=== PATIENT | female | born 1990 ===

== ENCOUNTER 2018-11-25 22:26 | Emergency (ER) | payer BC ==
[2018-11-25] MEDS ORDERED: PROTONIX 40 MG IV IV ONE (23:00)
[2018-11-25] MEDS ORDERED: Sodium Chloride 0.9% 1000 ML 1,000 ML IV STA ×2 (23:00→23:09)
[2018-11-25] MEDS ORDERED: Zofran 4 MG/2 ML VIAL IV ONE (23:08)
--- NOTE | 2018-11-25 23:16 | ERPHSYRPT ---
- History of Present Illness Time Seen by Provider: 11/25/18 22:48 Historian: patient Patient Subjective Stated Complaint: pt states she has been vomiting since monday. states she has been i ncreasingly weak Triage Nursing Assessment: pt awake, resting in bed with eyes closed. pt back per wheelchair. transfers to stretcher with minimal assist of 1. respirations nonlabored with lungs cta. skin pink warm and dry. bowel sounds hypo, present. abd soft, nontender to light palpation. Physician History: PATIENT COMPLAINS OF INTERMITTENT EMESIS X 3 DAYS, 3-4 TIMES DAILY GENERALIZED ACHES. DENIES ABDOMINAL PAIN, DIARRHEA, URINARY SYMPTOMS. Timing/Duration: day(s) Activities at Onset: none Abdominal Pain Onset Location: other (DENIES ABDOMINAL PAIN) Pain Radiation: no radiation Severity of Pain-Max: none Severity of Pain-Current: none Modifying Factors: Improves With: vomiting Associated Symptoms: other (GENERALIZED ACHES) Previous symptoms: no prior history Allergies/Adverse Reactions: peanut Allergy (Verified 11/25/18 23:47) lactose Adverse Reaction (Verified 11/25/18 23:47) Hx Tetanus, Diphtheria Vaccination/Date Given: Yes Hx Influenza Vaccination/Date Given: Yes Hx Pneumococcal Vaccination/Date Given: No Immunizations Up to Date: Yes - Review of Systems Constitutional: No Fever, No Chills Eyes: No Symptoms Ears, Nose, & Throat: No Symptoms Respiratory: No Symptoms, No Cough, No Dyspnea Cardiac: No Symptoms, No Chest Pain, No Edema, No Syncope Abdominal/Gastrointestinal: Nausea, Vomiting, No Diarrhea Genitourinary Symptoms: No Symptoms, No Dysuria Musculoskeletal: No Symptoms, No Back Pain, No Neck Pain Skin: No Rash Neurological: No Dizziness, No Focal Weakness, No Sensory Changes Psychological: No Symptoms Endocrine: No Symptoms All Other Systems: Reviewed and Negative - Past Medical History Pertinent Past Medical History: Yes Neurological History: Migraines, Other Endocrine Medical History: Hypothyroidism GI Medical History: Other Other Medical History: concussion sydrome- released in september. h pylori - Past Surgical History Past Surgical History: Yes Gastrointestinal: Cholecystectomy Other Surgical History: cysts removed - Social History Smoking Status: Never smoker Exposure to second hand smoke: No Drug Use: none Patient Lives Alone: No - Female History Hx Last Menstrual Period: nexplanon Hx Now: No - Nursing Vital Signs Nursing Vital Signs: Initial Vital Signs Temperature 98.8 F 11/25/18 22:38 Pulse Rate 95 H 11/25/18 22:38 Respiratory Rate 16 11/25/18 22:38 Blood Pressure 125/85 11/25/18 22:38 O2 Sat by Pulse Oximetry 96 11/25/18 22:38 Pain Scale Pain Intensity 5 - Physical Exam General Appearance: no apparent distress Eye Exam: PERRL/EOMI, eyes nml inspection Ears, Nose, Throat Exam: normal ENT inspection, pharynx normal, moist mucous membranes Neck Exam: normal inspection, non-tender, supple, full range of motion Respiratory Exam: normal breath sounds, lungs clear Cardiovascular Exam: regular rate/rhythm, normal heart sounds, tachycardia Gastrointestinal/Abdomen Exam: soft, normal bowel sounds (EPIGASTRIC, PERIUMBILICAL TENDERNESS) Back Exam: normal inspection, normal range of motion Extremity Exam: normal inspection, normal range of motion Neurologic Exam: alert, oriented x 3, cooperative Skin Exam: normal color SpO2 Interpretation: normal SpO2: 96 - CT Exams Abdomen/Pelvis CT Interpretation: Tele-radiologist Report (NO ACUTE FINDINGS. NORMAL APPENDIX, 1.4 CM RIGHT OVARIAN CYST, NO FREE AIR, OR BOWEL OBSTRUCTON) Ordered Tests: Active Orders 24 hr Category Date Time Status Clean Catch Urine Specimen STAT Care 11/25/18 23:00 Active IV Insertion STAT Care 11/25/18 23:00 Active ABDOMEN AND PELVIS W CONTRAST [CT] Stat Exams 11/25/18 23:08 Taken AMYLASE Stat Lab 11/25/18 23:47 Completed BMP Stat Lab 11/25/18 23:47 Completed CBC W DIFF Stat Lab 11/25/18 23:47 Completed LIPASE Stat Lab 11/25/18 23:47 Completed Medication Summary Discontinued Medications Generic Name Dose Route Start Last Admin Trade Name Freq PRN Reason Stop Dose Admin Famotidine Confirm 11/26/18 00:15 Pepcid 20 Mg Vial Administered 11/26/18 00:16 Dose 20 mg IV .STK-MED ONE Famotidine 20 mg 11/26/18 00:24 11/26/18 00:28 Pepcid 20 Mg Vial IV 11/26/18 00:25 20 mg STAT ONE Administration Sodium Chloride 1,000 mls @ 999 mls/hr 11/25/18 23:00 11/26/18 01:21 Sodium Chloride 0.9% 1000 Ml IV 11/26/18 00:00 Infused .Q1H1M STA Infusion Sodium Chloride 1,000 mls @ 999 mls/hr 11/25/18 23:09 Sodium Chloride 0.9% 1000 Ml IV 11/26/18 00:09 .Q1H1M STA Sodium Chloride Confirm 11/26/18 00:15 Sodium Chloride 0.9% 1000 Ml Administered 11/26/18 00:16 Dose 1,000 mls @ ud .ROUTE .STK-MED ONE Ondansetron HCl 4 mg 11/25/18 23:08 11/26/18 00:18 Zofran 4 Mg/2 Ml Vial IV 11/25/18 23:09 4 mg STAT ONE Administration Ondansetron HCl Confirm 11/26/18 00:15 Zofran 4 Mg/2 Ml Vial Administered 11/26/18 00:16 Dose 4 mg .ROUTE .STK-MED ONE Pantoprazole Sodium 40 mg 11/25/18 23:00 Protonix 40 Mg Iv IV 11/25/18 23:01 STAT ONE Lab/Rad Data: Laboratory Result Diagrams 11/25/18 23:47 11/25/18 23:47 Laboratory Results 11/25/18 11/25/18 11/25/18 Range/Units 23:47 23:47 00:04 WBC 11.4 H (4.0-10.5) K/mm3 RBC 3.93 L (4.1-5.4) M/mm3 Hgb 12.2 (12.0-16.0) gm/dl Hct 37.5 (35-47) % MCV 95.4 (78-100) fl MCH 31.0 (26-32) pg MCHC 32.5 (32-36) g/dl RDW 12.4 (11.5-14.0) % Plt Count 242 (150-450) K/mm3 MPV 10.5 H (6-9.5) fl Gran % 64.2 (36.0-66.0) % Eos # (Auto) 0.27 (0-0.5) Absolute Lymphs (auto) 2.51 (1.0-4.6) Absolute Monos (auto) 1.25 (0.0-1.3) Lymphocytes % 22.1 L (24.0-44.0) % Monocytes % 11.0 (0.0-12.0) % Eosinophils % 2.4 (0.00-5.0) % Basophils % 0.3 (0.0-0.4) % Absolute Granulocytes 7.29 H (1.4-6.9) Basophils # 0.03 (0-0.4) Sodium 140 (137-145) mmol/L Potassium 3.8 (3.5-5.1) mmol/L Chloride 108 H (98-107) mmol/L Carbon Dioxide 22 (22-30) mmol/L Anion Gap 14.3 (5-15) MEQ/L BUN 12 (7-17) mg/dL Creatinine 0.70 (0.52-1.04) mg/dL Estimated GFR > 60.0 ML/MIN Glucose 89 (74-106) mg/dL Calcium 9.2 (8.4-10.2) mg/dL Amylase 52 (30-110) U/L Lipase 119 (23-300) U/L Urine Color (YELLOW) Urine Appearance (CLEAR) Urine pH (5-6) Ur Specific [place] (1.005-1.025) Urine Protein (Negative) Urine Ketones (NEGATIVE) Urine Blood (0-5) Bruce/ul Urine Nitrite (NEGATIVE) Urine Bilirubin (NEGATIVE) Urine Urobilinogen (0-1) mg/dL Ur Leukocyte Esterase (NEGATIVE) Urine WBC (Auto) (0-5) /HPF Urine RBC (Auto) (0-2) /HPF U Epithel Cells (Auto) (FEW) /HPF Urine Bacteria (Auto) (NEGATIVE) /HPF Urine Mucus (Auto) (NEGATIVE) /HPF Urine Culture Reflexed (NO) Urine Glucose (NEGATIVE) mg/dL Urine HCG, Qual (Negative) Urine Opiates Level NEGATIVE (NEGATIVE) Ur Methadone NEGATIVE (NEGATIVE) Urine Barbiturates NEGATIVE (NEGATIVE) Ur Phencyclidine (PCP) NEGATIVE (NEGATIVE) Urine Amphetamine NEGATIVE (NEGATIVE) U Benzodiazepine Level NEGATIVE (NEGATIVE) Urine Cocaine NEGATIVE (NEGATIVE) Urine Marijuana (THC) NEGATIVE (NEGATIVE) 11/25/18 11/25/18 Range/Units 00:04 00:04 WBC (4.0-10.5) K/mm3 RBC (4.1-5.4) M/mm3 Hgb (12.0-16.0) gm/dl Hct (35-47) % MCV (78-100) fl MCH (26-32) pg MCHC (32-36) g/dl RDW (11.5-14.0) % Plt Count (150-450) K/mm3 MPV (6-9.5) fl Gran % (36.0-66.0) % Eos # (Auto) (0-0.5) Absolute Lymphs (auto) (1.0-4.6) Absolute Monos (auto) (0.0-1.3) Lymphocytes % (24.0-44.0) % Monocytes % (0.0-12.0) % Eosinophils % (0.00-5.0) % Basophils % (0.0-0.4) % Absolute Granulocytes (1.4-6.9) Basophils # (0-0.4) Sodium (137-145) mmol/L Potassium (3.5-5.1) mmol/L Chloride (98-107) mmol/L Carbon Dioxide (22-30) mmol/L Anion Gap (5-15) MEQ/L BUN (7-17) mg/dL Creatinine (0.52-1.04) mg/dL Estimated GFR ML/MIN Glucose (74-106) mg/dL Calcium (8.4-10.2) mg/dL Amylase (30-110) U/L Lipase (23-300) U/L Urine Color YELLOW (YELLOW) Urine Appearance CLEAR (CLEAR) Urine pH 6.0 (5-6) Ur Specific [place] 1.009 (1.005-1.025) Urine Protein NEGATIVE (Negative) Urine Ketones NEGATIVE (NEGATIVE) Urine Blood SMALL (0-5) Bruce/ul Urine Nitrite NEGATIVE (NEGATIVE) Urine Bilirubin NEGATIVE (NEGATIVE) Urine Urobilinogen NEGATIVE (0-1) mg/dL Ur Leukocyte Esterase NEGATIVE (NEGATIVE) Urine WBC (Auto) NONE (0-5) /HPF Urine RBC (Auto) 0-2 (0-2) /HPF U Epithel Cells (Auto) RARE (FEW) /HPF Urine Bacteria (Auto) RARE (NEGATIVE) /HPF Urine Mucus (Auto) SLIGHT (NEGATIVE) /HPF Urine Culture Reflexed NO (NO) Urine Glucose NEGATIVE (NEGATIVE) mg/dL Urine HCG, Qual NEGATIVE (Negative) Urine Opiates Level (NEGATIVE) Ur Methadone (NEGATIVE) Urine Barbiturates (NEGATIVE) Ur Phencyclidine (PCP) (NEGATIVE) Urine Amphetamine (NEGATIVE) U Benzodiazepine Level (NEGATIVE) Urine Cocaine (NEGATIVE) Urine Marijuana (THC) (NEGATIVE) - Progress Progress Note: 11/25/18 23:16 IV NORMAL SALINE 2 LITERS OVER 2 HOURS. 11/26/18 01:36, NO EVIDENCE OF EMESIS IN EMERGENCY Counseled pt/family regarding: lab results, diagnosis, need for follow-up, rad results - Departure Departure Disposition: Home Clinical Impression: ACUTE EMESIS, DEHYDRATION Condition: Stable Critical Care Time: No Referrals: LUIS MUÑOZ, THERMAL SPRAY OPERATOR [Primary Care Provider] - Additional Instructions: PEPCID 20MG TWICE DAILY FOR 2 WEEKS. ZOFRAN 4MG EVERY 4 HOURS FOR NAUSEA. CONSULT YOUR PRIMARY CARE PROVIDER FOR FOLLOWUP. Prescriptions: Ondansetron ODT 4 MG [Zofran Odt 4 mg] 4 mg PO Q6H PRN PRN #10 tab.rapdis PRN Reason: Nausea Famotidine 20 mg [Pepcid 20 MG] 20 mg PO BID #30 tablet
[2018-11-25 23:50] LABS: BASOPHIL % 0.3 % (0.0-0.4); Basophil (Absolute #) 0.03 (0-0.4); Eosinophil % 2.4 % (0.00-5.0); Eosinophil (Absolute #) 0.27 (0-0.5); Granulocyte Absolute (ANC) 7.29 (1.4-6.9); Granulocytes % 64.2 % (36.0-66.0); Hematocrit 37.5 % (35-47); Hemoglobin 12.2 gm/dl (12.0-16.0); Lymphocyte (Absolute #) 2.51 (1.0-4.6); Lymphocytes % 22.1 % (24.0-44.0); Mean Cell Volume 95.4 fl (78-100); Mean Corpuscular Hgb Concent. 32.5 g/dl (32-36); Mean Platelet Volume 10.5 fl (6-9.5); Monocyte (Absolute #) 1.25 (0.0-1.3); Platelet Count 242 K/mm3 (150-450); Red Blood Count 3.93 M/mm3 (4.1-5.4); Red Cell Distribution Width 12.4 % (11.5-14.0); White Blood Count 11.4 K/mm3 (4.0-10.5)
[2018-11-26 00:08] LABS: AMYLASE 52 U/L (30-110); ANION GAP 14.3 MEQ/L (5-15); BLOOD UREA NITROGEN 12 mg/dL (7-17); CHLORIDE 108 mmol/L (98-107); Calcium 9.2 mg/dL (8.4-10.2); Carbon Dioxide 22 mmol/L (22-30); Glucose 89 mg/dL (74-106); Potassium 3.8 mmol/L (3.5-5.1); SODIUM 140 mmol/L (137-145)
[2018-11-26 00:14] LABS: Appearance CLEAR (CLEAR); Bacteria RARE /HPF (NEGATIVE); Bilirubin NEGATIVE (NEGATIVE); Blood SMALL Ery/ul (0-5); Epithelial Cells RARE /HPF (FEW); Glucose NEGATIVE (NEGATIVE); Ketones NEGATIVE (NEGATIVE); Leukocyte Esterase NEGATIVE (NEGATIVE); Mucus SLIGHT /HPF (NEGATIVE); Nitrite NEGATIVE (NEGATIVE); Protein,Urine Dip NEGATIVE (Negative); RBC 0-2 /HPF (0-2); Specific Gravity 1.009 (1.005-1.025); Urobilinogen NEGATIVE mg/dL (0-1)
[2018-11-26] MEDS ORDERED: Zofran 4 MG/2 ML VIAL ONE (00:15)
[2018-11-26] MEDS ORDERED: Sodium Chloride 0.9% 1000 ML 1,000 ML ONE (00:15)
[2018-11-26] MEDS ORDERED: Pepcid 20 MG VIAL IV ONE ×2 (00:15→00:24)
[2018-11-26 00:24] LABS: Amphetamine,Urine NEGATIVE (NEGATIVE); Barbiturate,Urine NEGATIVE (NEGATIVE); Benzodiazepine,Urine NEGATIVE (NEGATIVE); Cocaine,Urine NEGATIVE (NEGATIVE); Methadone,Urine NEGATIVE (NEGATIVE); Opiate,Urine NEGATIVE (NEGATIVE); PCP,Urine NEGATIVE (NEGATIVE); THC,Urine NEGATIVE (NEGATIVE)
[2018-11-26 01:58] VITALS: BP 108/71; PULSE 79; O2SAT 98
--- NOTE | 2018-11-26 09:07 | XRAY ---
Indication: Lower abdominal pain. Nausea and vomiting. Multiple contiguous axial images obtained through the abdomen and pelvis using 80 cc Isovue 370 contrast only. Comparison: None Lung bases demonstrates lingula calcified granuloma. No infiltrate or effusion. Heart is not enlarged. Small hiatal hernia. Noncontrasted stomach and bowel loops appear nonobstructed. Normal appendix. Mild diffuse scattered colonic fecal debris throughout. 1.5 cm right ovary cyst. No free fluid/air. Previous cholecystectomy. Remaining liver, pancreas, spleen, adrenal glands, kidneys, ureters, bladder, uterus, and aorta appear unremarkable. No pathologic retroperitoneal lymphadenopathy. Osseous structures intact. No ventral or inguinal hernias. Impression: 1. Small hiatal hernia, mild diffuse fecal stasis, and dominant right ovary follicular cyst. 2. Remaining CT abdomen/pelvis with contrast exam is negative. Comment: Preliminary interpretation was made by [facility]. No critical discrepancy. CT DI 27.31
== END 2018-11-26 02:22 | disposition home or self-care (01) ==
LOC: ED 22:26
DX: R11.10 Vomiting, unspecified (principal); E86.0 Dehydration
CPT/HCPCS: 36000; 36415; 74177; 80048; 80307; 81001; 82150; 83690; 84703; 85025; 96360; 96374; 96375; 99284; J2405